=== PATIENT | male | born 1955 ===

== ENCOUNTER 2018-04-07 12:57 | Day surgery (SDC) | payer BC ==
[~2018-04-07 12:57] MED LIST: DOCU100 PO; GABA300 PO; LOSARTAN POTAS100 MG PO; META400 PO; NAPR500 PO; Norco 10-325 T1 EACH PO; ONDA4 PO
== END 2018-04-07 22:56 | disposition home or self-care (01) ==
LOC: ATC 12:57
DX: C18.7 Malignant neoplasm of sigmoid colon (principal)
CPT/HCPCS: 96523; J1642

== ENCOUNTER 2018-04-21 11:22 | Day surgery (SDC) | payer BC | END 2018-04-21 11:38 | disposition home or self-care (01) | LOC: ATC 11:22 | DX: C18.7 Malignant neoplasm of sigmoid colon (principal) | CPT/HCPCS: 96523; J1642 ==

== ENCOUNTER 2018-05-05 13:43 | Day surgery (SDC) | payer BC | END 2018-05-05 13:54 | disposition home or self-care (01) | LOC: ATC 13:43 | DX: C18.7 Malignant neoplasm of sigmoid colon (principal) | CPT/HCPCS: 96523; J1642 ==

== ENCOUNTER 2018-05-19 11:14 | Day surgery (SDC) | payer BC | END 2018-05-19 11:27 | disposition home or self-care (01) | LOC: ATC 11:14 | DX: C18.7 Malignant neoplasm of sigmoid colon (principal); E11.40 Type 2 diabetes mellitus with diabetic neuropathy, unspecified; I10 Essential (primary) hypertension; Z87.891 Personal history of nicotine dependence | CPT/HCPCS: 96523; J1642 ==

== ENCOUNTER 2018-06-02 14:16 | Day surgery (SDC) | payer BC | END 2018-06-02 14:47 | disposition home or self-care (01) | LOC: ATC 14:16 | DX: C18.7 Malignant neoplasm of sigmoid colon (principal); I10 Essential (primary) hypertension; E11.40 Type 2 diabetes mellitus with diabetic neuropathy, unspecified; Z79.899 Other long term (current) drug therapy; Z87.891 Personal history of nicotine dependence | CPT/HCPCS: 96523; J1642 ==

== ENCOUNTER 2019-03-28 09:33 | Day surgery (SDC) | payer BC ==
--- NOTE | 2019-03-28 10:44 | NUR ---
PT TO STEP POST LIVER BIOPSY. BAND AID D/I. HEATHER PAIN. NO SWELLING OR BRUISING NOTED.
--- NOTE | 2019-03-28 12:07 | NUR ---
PT ANXIOUS TO GO HOME. ORDER OBTAINED TO RELEASE EARLY. WRITTEN AND VERBAL D/C INSTUCTIONS GIVEN TO PT WITH STATED UNDERSTANDING.
== END 2019-03-28 12:08 | disposition home or self-care (01) ==
LOC: CT 09:33
DX: C78.7 Secondary malignant neoplasm of liver and intrahepatic bile duct (principal); C19 Malignant neoplasm of rectosigmoid junction; I10 Essential (primary) hypertension; E11.40 Type 2 diabetes mellitus with diabetic neuropathy, unspecified; E78.5 Hyperlipidemia, unspecified; G47.33 Obstructive sleep apnea (adult) (pediatric); E66.9 Obesity, unspecified; C78.00 Secondary malignant neoplasm of unspecified lung; Z79.899 Other long term (current) drug therapy
CPT/HCPCS: 47000; 77012; 88307; 88341; 88342

== ENCOUNTER 2019-07-11 06:44 | Day surgery (SDC) | payer OTHER ==
[~2019-07-11] VITALS: Ht 182.9 cm; Wt 110.9 kg
--- NOTE | 2019-07-11 07:24 | NUR ---
PT ADMITTED TO [facility]. AGREES WITH PLANNED SURGERY. LUNG SOUNDS CLEAR.
--- NOTE | 2019-07-11 11:06 | NUR ---
1100 PT MEETS CRITERIA FOR D/C. Discharge instructions reviewed with patient AND PT'S . . Patient verbalizes understanding. Copy given to patient to take home. Discharged via wheelchair to private car for ride home.
== END 2019-07-11 11:00 | disposition home or self-care (01) ==
LOC: ORSCMMR 06:44 → ORD 07:30 → ORSCMMR 07:30
PROVIDERS: Surgery
PROC: B5131ZA Fluoroscopy of Right Jugular Veins using Low Osmolar Contrast, Guidance (ICD-10-PCS; principal; 2019-07-11 08:30)
PROC: 05HM33Z Insertion of Infusion Device into Right Internal Jugular Vein, Percutaneous Approach (ICD-10-PCS; principal; 2019-07-11 08:30)
DX: C78.7 Secondary malignant neoplasm of liver and intrahepatic bile duct (principal); I10 Essential (primary) hypertension; E11.9 Type 2 diabetes mellitus without complications; E11.40 Type 2 diabetes mellitus with diabetic neuropathy, unspecified; E78.5 Hyperlipidemia, unspecified; G47.33 Obstructive sleep apnea (adult) (pediatric); Z79.899 Other long term (current) drug therapy
CPT/HCPCS: 77001; 82947; 83036; 93005; 93010; A9270-GY; C1788; J0690; J1100; J1642; J2250; J2405; J2704; J3010; J7120

== ENCOUNTER → 2019-10-06 | Outpatient (CLI) | payer OTHER | END | disposition home or self-care (01) | LOC: LAB SHORT 10:52 → LAB EV 10:52 | DX: S81.801A Unspecified open wound, right lower leg, initial encounter (principal) | CPT/HCPCS: 87070; 87075; 87077; 87186; 87205 ==

== ENCOUNTER 2019-10-11 01:27 | Day surgery (SDC) | payer OTHER | END 2019-10-11 22:50 | disposition home or self-care (01) | LOC: WOUND 01:27 | DX: E11.622 Type 2 diabetes mellitus with other skin ulcer (principal); L97.812 Non-pressure chronic ulcer of other part of right lower leg with fat layer exposed; E11.42 Type 2 diabetes mellitus with diabetic polyneuropathy; Z79.899 Other long term (current) drug therapy | CPT/HCPCS: G0463 ==

== ENCOUNTER 2019-10-18 00:12 | Day surgery (SDC) | payer OTHER | END 2019-10-18 23:05 | disposition home or self-care (01) | LOC: WOUND 00:12 | DX: E11.622 Type 2 diabetes mellitus with other skin ulcer (principal); L97.812 Non-pressure chronic ulcer of other part of right lower leg with fat layer exposed; E11.42 Type 2 diabetes mellitus with diabetic polyneuropathy ==

== ENCOUNTER 2019-10-28 00:20 | Day surgery (SDC) | payer OTHER | END 2019-10-28 22:50 | disposition home or self-care (01) | LOC: WOUND 00:20 | DX: E11.622 Type 2 diabetes mellitus with other skin ulcer (principal); E11.42 Type 2 diabetes mellitus with diabetic polyneuropathy; L97.812 Non-pressure chronic ulcer of other part of right lower leg with fat layer exposed; Z79.899 Other long term (current) drug therapy | CPT/HCPCS: G0463 ==

== ENCOUNTER 2019-11-19 00:24 | Day surgery (SDC) | payer OTHER | END 2019-11-19 23:12 | disposition home or self-care (01) | LOC: WOUND 00:24 | DX: E11.622 Type 2 diabetes mellitus with other skin ulcer (principal); L97.812 Non-pressure chronic ulcer of other part of right lower leg with fat layer exposed ==

== ENCOUNTER 2019-12-23 00:20 | Day surgery (SDC) | payer OTHER | END 2019-12-23 22:49 | disposition home or self-care (01) | LOC: WOUND 00:20 | DX: E11.622 Type 2 diabetes mellitus with other skin ulcer (principal); L97.812 Non-pressure chronic ulcer of other part of right lower leg with fat layer exposed; C18.9 Malignant neoplasm of colon, unspecified; E11.59 Type 2 diabetes mellitus with other circulatory complications; Z79.899 Other long term (current) drug therapy | CPT/HCPCS: 88305 ==

== ENCOUNTER 2020-01-06 09:14 | Day surgery (SDC) | payer OTHER | END 2020-01-06 22:54 | disposition home or self-care (01) | LOC: WOUND 09:14 | DX: E11.622 Type 2 diabetes mellitus with other skin ulcer (principal); L97.812 Non-pressure chronic ulcer of other part of right lower leg with fat layer exposed; E11.42 Type 2 diabetes mellitus with diabetic polyneuropathy; E11.59 Type 2 diabetes mellitus with other circulatory complications; C18.9 Malignant neoplasm of colon, unspecified; C78.02 Secondary malignant neoplasm of left lung; C78.01 Secondary malignant neoplasm of right lung; C78.7 Secondary malignant neoplasm of liver and intrahepatic bile duct; Z79.899 Other long term (current) drug therapy ==

== ENCOUNTER → 2020-01-07 | Outpatient (CLI) | payer OTHER | LOC: LAB 13:50 → LAB SHORT 13:50 | DX: L97.811 Non-pressure chronic ulcer of other part of right lower leg limited to breakdown of skin (principal); L08.9 Local infection of the skin and subcutaneous tissue, unspecified; L85.3 Xerosis cutis; R60.0 Localized edema | CPT/HCPCS: 87070; 87205 ==